=== PATIENT | male | born 1955 | race Asian ===

== ENCOUNTER 2024-05-21 16:42 | Inpatient (IN) | payer MEDICARE, MEDICAID ==
[~2024-05-21] VITALS: Ht 154.9 cm; Wt 86.0 kg
[2024-05-21] MEDS: FENTANYL-0.9 % NACL/PF 100 ML IV SCH (07:10)
[2024-05-21 16:57] VITALS: BP 144/94; PULSE 103; RESP 16; O2SAT 98
[2024-05-21 17:28] LABS: BASOPHILS % (AUTO) 0.1 % (0-1); EOSINOPHILS % (AUTO) 0.2 % (0-6); HEMATOCRIT 40.3 % (42.0-52.0); HEMOGLOBIN 13.7 g/dl (14.0-17.9); LYMPHOCYTES # (AUTO) 0.6 X10'3 (1.1-4.8); LYMPHOCYTES % (AUTO) 4.3 % (21-51); MEAN CORPUSCULAR HEMOGLOBIN 30.2 PG (27.0-31.0); MEAN CORPUSCULAR HGB CONC 33.9 g/dL (33.0-36.5); MEAN CORPUSCULAR VOLUME 88.9 FL (78-98); MEAN PLATELET VOLUME 7.9 FL (7.4-10.4); MONOCYTES # (AUTO) 0.2 X10'3 (0-0.9); MONOCYTES % (AUTO) 1.1 % (2-12); NEUTROPHILS # (AUTO) 14.1 X10'3 (1.8-7.7); NEUTROPHILS % (AUTO) 94.3 % (42-75); PLATELET COUNT 191 X10'3 (140-440); RED BLOOD COUNT 4.54 X10'6 (4.70-6.10); RED CELL DISTRIBUTION WIDTH 13.5 % (11.5-14.5); WHITE BLOOD COUNT 14.9 X10'3 (4.5-11.0)
[2024-05-21] MEDS: propofol 1000mg/100ml bottle 100 ML IV SCH (17:33)
[2024-05-21 17:41] LABS: APTT 29 SECONDS (22-32); PROTHROMBIN TIME 10.6 SECONDS (9.0-12.0)
[2024-05-21] MEDS ORDERED: morphine 4 MG/ML inj SYRINge IV PRN (17:45)
[2024-05-21] MEDS ORDERED: magnesium hydroxide 30ml (MOM) UD suspension PO PRN (17:45)
[2024-05-21] MEDS ORDERED: acetaminophen 325mg tablet PO PRN (17:45)
[2024-05-21] MEDS ORDERED: morphine 2 MG/ML inj. syringe IV PRN (17:45)
[2024-05-21 17:54] LABS: ALBUMIN 2.1 G/DL (3.4-5.0); ANION GAP 8 (8-16); BLOOD UREA NITROGEN 51 MG/DL (7-18); BUN/CREATININE RATIO 9.8 (10.0-20.0); CALCIUM 8.7 MG/DL (8.5-10.1); CHLORIDE 102 MMOL/L (99-107); MAGNESIUM 2.2 MG/DL (1.5-2.4); PRO BRAIN NATRIURETIC PEPTIDE 12947 PG/ML (0-125); SODIUM 133 MMOL/L (135-145); TOTAL CARBON DIOXIDE 23.3 MMOL/L (24-32); eCRCL 10 ML/MIN; eGFR 11 ML/MIN
[2024-05-21] MEDS: normal saline 1000ml 1,000 ML IV SCH (18:07)
[2024-05-21 18:08] LABS: GLUCOSE 558 MG/DL (70-104); POTASSIUM 6.4 MMOL/L (3.5-5.1)
[2024-05-21] MEDS: LidoCAINE 2% Topical Jelly 11mL syringe (UROJET) TOP ONE (18:11)
[2024-05-21] MEDS: dexmedetomidin/NS 400mcg/100ml 100 ML IV SCH (18:40)
[2024-05-21] MEDS: fentaNYL/PF 50MCG/1 ML 2ML syringe IV PRN (18:56)
[2024-05-21] MEDS: COMMUNICATION ORDER 1 EA MISC MC ONE (19:03)
[2024-05-21] MEDS: fentaNYL/PF 50MCG/1 ML 2ML syringe ONE (19:03)
[2024-05-21 19:14] VITALS: BP 92/58; PULSE 93; RESP 18; O2SAT 97
[2024-05-21 19:16] LABS: BILIRUBIN,URINE NEGATIVE (Neg); CLARITY,URINE SLIGHTLY CLOUDY (Clear); COLOR,URINE YELLOW (Yellow); GLUCOSE, URINE >=1000 mg/dl (Neg); KETONES,URINE NEGATIVE (Neg); LEUKOCYTE ESTERASE ,URINE NEGATIVE (Neg); OCCULT BLOOD,URINE MODERATE (Neg); PROTEIN,URINE >=300 mg/dl (Neg); UROBILINOGEN,URINE 0.2 E.U/dL (0.2-1.0)
[2024-05-21 19:19] LABS: NITRITES, URINE NEGATIVE (Neg)
[2024-05-21 19:23] LABS: BACTERIA,URINE 1+ /HPF (Neg); SQUAMOUS EPITHELIAL CELL,UR FEW /LPF (FEW); UA COLLECTION TYPE FOLEY CATH; WBC,URINE 0-4 /HPF (0-4)
[2024-05-21 19:35] LABS: ABG BASE EXCESS -4.3 mmol/L (-2.0-3.0); ABG HCO3 21.2 mmol/L (21.0-28.0); ABG OXYGEN SATURATION 95.1 % (94.0-98.0); ABG PCO2 (T) 38.9 mmHg (35.0-48.0); ABG PO2 (T) 74.5 mmHg (83.0-108.0); ALLEN'S TEST Modified; FCOHb 0.3 % (0.5-1.5); FHHb 4.8 % (0.0-5.0); FMetHb 1.1 % (0.0-1.5); FO2Hb 93.8 % (94.0-98.0); PATIENT TEMPERATURE 36.2; PEEP 8 cm H2O; RESPIRATORY RATE 18 b/min; TIDAL VOLUME 400 mL
[2024-05-21] MEDS ORDERED: albumin (human) 25% 100ml IV 100 ML in normal saline 500ml IV soln 400 ML IV ONE (19:35)
[2024-05-21] MEDS ORDERED: glucagon, human recombinant 1mg kit SUBCUT PRN (19:45)
[2024-05-21] MEDS ORDERED: DEXTROSE 15 GM of carb/4 tabs (each vial/BOTTLE has 4 tablets) PO PRN ×2 (19:45)
[2024-05-21] MEDS ORDERED: dextrose 50%-water 50ml dispensing syringe IV PRN ×2 (19:45)
[2024-05-21] MEDS: NORepinephrine 8mg/ 250ml NS 250 ML IV SCH (19:53)
[2024-05-21] MEDS: heparin, porcine 5000 units/ml vial SQ SCH (20:00)
[2024-05-21] MEDS: famotidine/PF 10 mg/ml inj IV SCH (21:10)
[2024-05-21] MEDS: SODIUM ZIRCONIUM CYCLOSILICATE 10 GM POWD.PACK PO SCH (21:11)
[2024-05-21] MEDS: albumin (Human) 5% 250ml 250 ML IV ONE (21:12)
[2024-05-21] MEDS: insulin regular, human U-100 10ml vial - multi-dose SQ SCH (21:14)
[2024-05-21 21:22] VITALS: BP 139/81; PULSE 83; RESP 20; O2SAT 100
[2024-05-21] MEDS: Insulin Reg/NS 100units/100mL 100 ML IV SCH (22:42)
[2024-05-21] MEDS: vancomycin/NS 1 GM ADD-VANTAGE 250 ML IV ONE (22:43)
[2024-05-21 23:17] VITALS: BP 126/79; PULSE 83; RESP 22; O2SAT 100
[2024-05-22] VITALS (21 sets, daily range): BP systolic 82–157; BP diastolic 51–87; PULSE 44–138; RESP 12–23; TEMP 97.8; O2SAT 94–100
[2024-05-22 02:43] LABS: BASOPHILS % (AUTO) 0 % (0-1); EOSINOPHILS % (AUTO) 0 % (0-6); HEMATOCRIT 33.4 % (42.0-52.0); HEMOGLOBIN 11.4 g/dl (14.0-17.9); LYMPHOCYTES # (AUTO) 0.4 X10'3 (1.1-4.8); LYMPHOCYTES % (AUTO) 5.9 % (21-51); MEAN CORPUSCULAR HEMOGLOBIN 30.1 PG (27.0-31.0); MEAN CORPUSCULAR HGB CONC 34.1 g/dL (33.0-36.5); MEAN CORPUSCULAR VOLUME 88.3 FL (78-98); MEAN PLATELET VOLUME 7.9 FL (7.4-10.4); MONOCYTES # (AUTO) 0.2 X10'3 (0-0.9); MONOCYTES % (AUTO) 3.2 % (2-12); NEUTROPHILS # (AUTO) 6.5 X10'3 (1.8-7.7); NEUTROPHILS % (AUTO) 90.9 % (42-75); PLATELET COUNT 139 X10'3 (140-440); RED BLOOD COUNT 3.78 X10'6 (4.70-6.10); RED CELL DISTRIBUTION WIDTH 13.5 % (11.5-14.5); WHITE BLOOD COUNT 7.2 X10'3 (4.5-11.0)
[2024-05-22 02:57] LABS: ALANINE AMINOTRANSFERASE 21 U/L (12-78); ALBUMIN/GLOBULIN RATIO 0.6 (1.1-1.5); ALKALINE PHOSPHATASE 153 IU/L (46-116); ANION GAP 6 (8-16); ASPARTATE AMINO TRANSFERASE 12 U/L (10-37); BILIRUBIN,TOTAL 0.3 MG/DL (0.1-1.0); BLOOD UREA NITROGEN 57 MG/DL (7-18); BUN/CREATININE RATIO 10.1 (10.0-20.0); CALCIUM 8.3 MG/DL (8.5-10.1); CHLORIDE 104 MMOL/L (99-107); CREATININE 5.66 MG/DL (0.60-1.10); MAGNESIUM 2.1 MG/DL (1.5-2.4); PHOSPHORUS 3.9 MG/DL (2.3-4.5); POTASSIUM 5.8 MMOL/L (3.5-5.1); SODIUM 135 MMOL/L (135-145); TOTAL CARBON DIOXIDE 24.8 MMOL/L (24-32); TOTAL PROTEIN 5.5 G/DL (6.4-8.2); eCRCL 9 ML/MIN; eGFR 10 ML/MIN
[2024-05-22 03:04] LABS: GLUCOSE 470 MG/DL (70-104)
[2024-05-22] MEDS: acetaminophen 1,000mg/100ml IV 100 ML IV ONE (03:21)
[2024-05-22 04:35] LABS: ABG BASE EXCESS -2.4 mmol/L (-2.0-3.0); ABG HCO3 22.4 mmol/L (21.0-28.0); ABG OXYGEN SATURATION 97.4 % (94.0-98.0); ABG PCO2 (T) 41.5 mmHg (35.0-48.0); ABG PH (T) 7.357 (7.350-7.450); ABG PO2 (T) 111.5 mmHg (83.0-108.0); ALLEN'S TEST Modified; FCOHb 0.2 % (0.5-1.5); FHHb 2.6 % (0.0-5.0); FMetHb 0.7 % (0.0-1.5); FO2Hb 96.5 % (94.0-98.0); MODE CMV PRVC IT0.9; PATIENT TEMPERATURE 38.8; PEEP 8 cm H2O; RESPIRATORY RATE 18 b/min; TIDAL VOLUME 400 mL; TOTAL HEMOGLOBIN 10.3 G/dl (13.5-17.5)
[2024-05-22] MEDS: INSULIN LISPRO 100 UNIT/ML INSULN.PEN MULTI-DOSE SQ SCH ×2 (07:24→21:00)
[2024-05-22] MEDS ORDERED: UNABLE TO OBTAIN (07:43)
[2024-05-22] MEDS ORDERED: enoxaparin 40mg/0.4ml syringe SUBCUT SCH (08:00)
[2024-05-22] MEDS ORDERED: vancomycin/NS 1 GM ADD-VANTAGE 250 ML IV PRN (08:00)
[2024-05-22] MEDS: DOBUTamine-DoBUTrex 500mg/D5W 250 ML IV SCH ×2 (08:14→15:05)
[2024-05-22] MEDS: DOBUTamine-DoBUTrex 500mg/D5W 250 ML IV ONE (08:36)
[2024-05-22] MEDS: ringers solution, lacted 1,000 ML IV ONE (08:39)
[2024-05-22] MEDS: cefepime 1GM in D5W 50mL 50 ML IV SCH (10:08)
[2024-05-22] MEDS: SODIUM ZIRCONIUM CYCLOSILICATE 10 GM POWD.PACK NG SCH (10:08)
[2024-05-22] MEDS ORDERED: dextrose 50%-water 50ml dispensing syringe IV PRN ×4 (12:25→13:35)
[2024-05-22] MEDS ORDERED: glucagon, human recombinant 1mg kit SUBCUT PRN ×2 (12:25→13:35)
[2024-05-22] MEDS ORDERED: DEXTROSE 15 GM of carb/4 tabs (each vial/BOTTLE has 4 tablets) PO PRN ×4 (12:25→13:35)
[2024-05-22] MEDS: ringers solution, lacted 1,000 ML IV SCH (12:40)
[2024-05-22] MEDS: famotidine/PF 10 mg/ml inj IV SCH (15:10)
[2024-05-22] MEDS: insulin glargine (Lantus) pen - multi-dose SQ SCH (20:00)
[2024-05-23] VITALS (20 sets, daily range): BP systolic 115–153; BP diastolic 71–97; PULSE 93–134; RESP 12–22; TEMP 97–98.9; O2SAT 94–99
[2024-05-23] MEDS: piperacillin/tazo 3.375gm/50ml 50 ML IV SCH ×2 (00:27→19:55)
[2024-05-23] MEDS ORDERED: VANCOMYCIN LEVEL IV SCH (03:00)
[2024-05-23 03:11] LABS: BASOPHILS % (AUTO) 0.2 % (0-1); EOSINOPHILS % (AUTO) 0.1 % (0-6); HEMATOCRIT 30.6 % (42.0-52.0); HEMOGLOBIN 10.4 g/dl (14.0-17.9); LYMPHOCYTES # (AUTO) 0.7 X10'3 (1.1-4.8); LYMPHOCYTES % (AUTO) 6.9 % (21-51); MEAN CORPUSCULAR HEMOGLOBIN 30.1 PG (27.0-31.0); MEAN CORPUSCULAR HGB CONC 34.1 g/dL (33.0-36.5); MEAN CORPUSCULAR VOLUME 88.2 FL (78-98); MEAN PLATELET VOLUME 8.1 FL (7.4-10.4); MONOCYTES # (AUTO) 0.7 X10'3 (0-0.9); MONOCYTES % (AUTO) 6.9 % (2-12); NEUTROPHILS # (AUTO) 8.5 X10'3 (1.8-7.7); NEUTROPHILS % (AUTO) 85.9 % (42-75); PLATELET COUNT 132 X10'3 (140-440); RED BLOOD COUNT 3.47 X10'6 (4.70-6.10); RED CELL DISTRIBUTION WIDTH 13.7 % (11.5-14.5); WHITE BLOOD COUNT 9.9 X10'3 (4.5-11.0)
[2024-05-23 03:43] LABS: ALBUMIN 1.9 G/DL (3.4-5.0); ANION GAP 9 (8-16); BLOOD UREA NITROGEN 70 MG/DL (7-18); CALCIUM 8.3 MG/DL (8.5-10.1); CHLORIDE 103 MMOL/L (99-107); CREATININE 5.85 MG/DL (0.60-1.10); MAGNESIUM 2.1 MG/DL (1.5-2.4); PHOSPHORUS 5.7 MG/DL (2.3-4.5); SODIUM 137 MMOL/L (135-145); TOTAL CARBON DIOXIDE 24.8 MMOL/L (24-32); eCRCL 9 ML/MIN; eGFR 10 ML/MIN
[2024-05-23 03:56] LABS: GLUCOSE 445 MG/DL (70-104)
[2024-05-23] MEDS: INSULIN LISPRO 100 UNIT/ML INSULN.PEN MULTI-DOSE SQ ONE (04:25)
[2024-05-23] MEDS: metoprolol tartrate 1mg/ml inj IV SCH (04:28)
[2024-05-23] MEDS: DOBUTamine-DoBUTrex 500mg/D5W 250 ML IV SCH (04:33)
[2024-05-23] MEDS ORDERED: cefepime inj. 0.25 GM in normal saline 100ml IV soln 102.5 ML IV SCH (08:00)
[2024-05-23] MEDS: acetaminophen 325mg tablet PO PRN (08:09)
[2024-05-23] MEDS: INSULIN LISPRO 100 UNIT/ML INSULN.PEN MULTI-DOSE SQ SCH ×2 (09:00→12:28)
[2024-05-23] MEDS: metoprolol succinate 25mg (24-HOUR) SR. Tablet PO SCH (11:07)
[2024-05-23 15:21] LABS: FREE T4 (FREE THYROXINE) 0.76 NG/DL (0.73-1.40); THYROID STIMULATING HORMONE 2.99 ulU/ml (0.34-4.50)
[2024-05-23] MEDS: ondansetron/PF 4mg/2ml inj IV PRN (19:34)
[2024-05-24] VITALS (10 sets, daily range): BP systolic 135–165; BP diastolic 69–98; PULSE 95–116; RESP 15–25; TEMP 97.1–98; O2SAT 94–99
[2024-05-24 04:16] LABS: BASOPHILS % (AUTO) 0.4 % (0-1); EOSINOPHILS # (AUTO) 0.3 X10'3 (0-0.9); EOSINOPHILS % (AUTO) 4.8 % (0-6); HEMATOCRIT 29.9 % (42.0-52.0); LYMPHOCYTES # (AUTO) 0.9 X10'3 (1.1-4.8); LYMPHOCYTES % (AUTO) 13.3 % (21-51); MEAN CORPUSCULAR HEMOGLOBIN 29.5 PG (27.0-31.0); MEAN CORPUSCULAR HGB CONC 33.4 g/dL (33.0-36.5); MEAN CORPUSCULAR VOLUME 88.3 FL (78-98); MEAN PLATELET VOLUME 7.9 FL (7.4-10.4); MONOCYTES # (AUTO) 0.6 X10'3 (0-0.9); MONOCYTES % (AUTO) 8.5 % (2-12); PLATELET COUNT 135 X10'3 (140-440); RED BLOOD COUNT 3.38 X10'6 (4.70-6.10); RED CELL DISTRIBUTION WIDTH 13.8 % (11.5-14.5); WHITE BLOOD COUNT 6.8 X10'3 (4.5-11.0)
[2024-05-24 04:58] LABS: ALBUMIN 1.7 G/DL (3.4-5.0); ANION GAP 9 (8-16); BLOOD UREA NITROGEN 64 MG/DL (7-18); CALCIUM 7.6 MG/DL (8.5-10.1); CHLORIDE 110 MMOL/L (99-107); CREATININE 5.83 MG/DL (0.60-1.10); GLUCOSE 93 MG/DL (70-104); MAGNESIUM 2.1 MG/DL (1.5-2.4); PHOSPHORUS 6.1 MG/DL (2.3-4.5); POTASSIUM 3.6 MMOL/L (3.5-5.1); SODIUM 145 MMOL/L (135-145); TOTAL CARBON DIOXIDE 26.4 MMOL/L (24-32); eCRCL 9 ML/MIN; eGFR 10 ML/MIN
[2024-05-24] MEDS: dextrose 50%-water 50ml dispensing syringe IV PRN (07:56)
[2024-05-24] MEDS: insulin glargine (Lantus) pen - multi-dose SQ SCH (20:00)
[2024-05-25] VITALS (8 sets, daily range): BP systolic 134–160; BP diastolic 82–92; PULSE 90–104; RESP 13–20; TEMP 97.3–99.2; O2SAT 94–100
[2024-05-25 04:26] LABS: BASOPHILS # (AUTO) 0.1 X10'3 (0-0.2); BASOPHILS % (AUTO) 0.7 % (0-1); EOSINOPHILS # (AUTO) 0.5 X10'3 (0-0.9); EOSINOPHILS % (AUTO) 6.9 % (0-6); HEMATOCRIT 30.7 % (42.0-52.0); HEMOGLOBIN 10.4 g/dl (14.0-17.9); LYMPHOCYTES # (AUTO) 0.9 X10'3 (1.1-4.8); LYMPHOCYTES % (AUTO) 13.4 % (21-51); MEAN CORPUSCULAR HEMOGLOBIN 29.7 PG (27.0-31.0); MEAN CORPUSCULAR VOLUME 87.3 FL (78-98); MEAN PLATELET VOLUME 7.5 FL (7.4-10.4); MONOCYTES # (AUTO) 0.7 X10'3 (0-0.9); MONOCYTES % (AUTO) 9.6 % (2-12); NEUTROPHILS # (AUTO) 4.7 X10'3 (1.8-7.7); NEUTROPHILS % (AUTO) 69.4 % (42-75); PLATELET COUNT 136 X10'3 (140-440); RED BLOOD COUNT 3.51 X10'6 (4.70-6.10); RED CELL DISTRIBUTION WIDTH 13.6 % (11.5-14.5); WHITE BLOOD COUNT 6.8 X10'3 (4.5-11.0)
[2024-05-25 04:39] LABS: ALBUMIN 1.7 G/DL (3.4-5.0); ANION GAP 6 (8-16); BLOOD UREA NITROGEN 61 MG/DL (7-18); BUN/CREATININE RATIO 10.5 (10.0-20.0); CALCIUM 7.3 MG/DL (8.5-10.1); CHLORIDE 108 MMOL/L (99-107); CREATININE 5.81 MG/DL (0.60-1.10); GLUCOSE 169 MG/DL (70-104); MAGNESIUM 2.1 MG/DL (1.5-2.4); PHOSPHORUS 5.9 MG/DL (2.3-4.5); POTASSIUM 3.6 MMOL/L (3.5-5.1); SODIUM 142 MMOL/L (135-145); TOTAL CARBON DIOXIDE 27.7 MMOL/L (24-32); eCRCL 9 ML/MIN; eGFR 10 ML/MIN
[2024-05-25] MEDS: SODIUM ZIRCONIUM CYCLOSILICATE 10 GM POWD.PACK PO SCH (09:58)
[2024-05-25] MEDS ORDERED: calcium acetate 667mg (PhosLO) capsule PO SCH (13:00)
[2024-05-25] MEDS: calcium acetate 667mg (PhosLO) capsule PO SCH (13:54)
[2024-05-26] VITALS (9 sets, daily range): BP systolic 135–160; BP diastolic 62–97; PULSE 57–112; RESP 14–19; TEMP 97–98.3; O2SAT 93–99
[2024-05-26 04:38] LABS: BASOPHILS % (AUTO) 0.6 % (0-1); EOSINOPHILS # (AUTO) 0.6 X10'3 (0-0.9); EOSINOPHILS % (AUTO) 9.1 % (0-6); HEMATOCRIT 32.6 % (42.0-52.0); LYMPHOCYTES # (AUTO) 1.1 X10'3 (1.1-4.8); LYMPHOCYTES % (AUTO) 17.4 % (21-51); MEAN CORPUSCULAR HEMOGLOBIN 29.7 PG (27.0-31.0); MEAN CORPUSCULAR HGB CONC 33.8 g/dL (33.0-36.5); MEAN CORPUSCULAR VOLUME 87.9 FL (78-98); MEAN PLATELET VOLUME 7.9 FL (7.4-10.4); MONOCYTES # (AUTO) 0.6 X10'3 (0-0.9); MONOCYTES % (AUTO) 9.8 % (2-12); NEUTROPHILS % (AUTO) 63.1 % (42-75); PLATELET COUNT 165 X10'3 (140-440); RED BLOOD COUNT 3.71 X10'6 (4.70-6.10); RED CELL DISTRIBUTION WIDTH 13.8 % (11.5-14.5); WHITE BLOOD COUNT 6.4 X10'3 (4.5-11.0)
[2024-05-26 04:51] LABS: ALBUMIN 1.8 G/DL (3.4-5.0); BLOOD UREA NITROGEN 61 MG/DL (7-18); BUN/CREATININE RATIO 11.1 (10.0-20.0); CALCIUM 7.4 MG/DL (8.5-10.1); CREATININE 5.48 MG/DL (0.60-1.10); GLUCOSE 199 MG/DL (70-104); MAGNESIUM 1.9 MG/DL (1.5-2.4); PHOSPHORUS 5.4 MG/DL (2.3-4.5); TOTAL CARBON DIOXIDE 25.8 MMOL/L (24-32); eCRCL 10 ML/MIN; eGFR 10 ML/MIN
[2024-05-26 05:07] LABS: ANION GAP 8 (8-16); CHLORIDE 108 MMOL/L (99-107); POTASSIUM 3.7 MMOL/L (3.5-5.1); SODIUM 142 MMOL/L (135-145)
[2024-05-26] MEDS: INSULIN LISPRO 100 UNIT/ML INSULN.PEN MULTI-DOSE SQ SCH (09:13)
[2024-05-26] MEDS: metoprolol succinate 25mg (24-HOUR) SR. Tablet PO ONE (17:58)
[2024-05-26] MEDS: furosemide 40mg/4ml inj IV SCH (18:09)
[2024-05-26] MEDS: hydrALAZINE 25 MG tablet PO SCH (20:19)
[2024-05-26] MEDS: insulin glargine (Lantus) pen - multi-dose SQ SCH (20:24)
[2024-05-27] VITALS (8 sets, daily range): BP systolic 125–151; BP diastolic 70–86; PULSE 86–105; RESP 13–23; TEMP 97.2–98.2; O2SAT 97–99
[2024-05-27 03:11] LABS: BASOPHILS % (AUTO) 0.7 % (0-1); EOSINOPHILS # (AUTO) 0.5 X10'3 (0-0.9); EOSINOPHILS % (AUTO) 9.1 % (0-6); HEMATOCRIT 28.3 % (42.0-52.0); HEMOGLOBIN 9.7 g/dl (14.0-17.9); LYMPHOCYTES # (AUTO) 0.8 X10'3 (1.1-4.8); LYMPHOCYTES % (AUTO) 14.2 % (21-51); MEAN CORPUSCULAR HEMOGLOBIN 29.7 PG (27.0-31.0); MEAN CORPUSCULAR HGB CONC 34.2 g/dL (33.0-36.5); MEAN CORPUSCULAR VOLUME 86.7 FL (78-98); MEAN PLATELET VOLUME 7.3 FL (7.4-10.4); MONOCYTES # (AUTO) 0.6 X10'3 (0-0.9); MONOCYTES % (AUTO) 10.6 % (2-12); NEUTROPHILS # (AUTO) 3.7 X10'3 (1.8-7.7); NEUTROPHILS % (AUTO) 65.4 % (42-75); PLATELET COUNT 153 X10'3 (140-440); RED BLOOD COUNT 3.26 X10'6 (4.70-6.10); RED CELL DISTRIBUTION WIDTH 13.5 % (11.5-14.5); WHITE BLOOD COUNT 5.6 X10'3 (4.5-11.0)
[2024-05-27 03:30] LABS: ALBUMIN 1.6 G/DL (3.4-5.0); ANION GAP 5 (8-16); BLOOD UREA NITROGEN 66 MG/DL (7-18); BUN/CREATININE RATIO 11.7 (10.0-20.0); CALCIUM 7.5 MG/DL (8.5-10.1); CHLORIDE 110 MMOL/L (99-107); CREATININE 5.63 MG/DL (0.60-1.10); GLUCOSE 86 MG/DL (70-104); PHOSPHORUS 5.2 MG/DL (2.3-4.5); POTASSIUM 3.7 MMOL/L (3.5-5.1); PRO BRAIN NATRIURETIC PEPTIDE 17887 PG/ML (0-125); SODIUM 144 MMOL/L (135-145); TOTAL CARBON DIOXIDE 28.9 MMOL/L (24-32); eCRCL 9 ML/MIN; eGFR 10 ML/MIN
[2024-05-27] MEDS: metoprolol succinate 25mg (24-HOUR) SR. Tablet PO SCH (08:37)
[2024-05-27] MEDS: SODIUM ZIRCONIUM CYCLOSILICATE 10 GM POWD.PACK PO SCH (08:39)
[2024-05-27] MEDS: INSULIN LISPRO 100 UNIT/ML INSULN.PEN MULTI-DOSE SQ SCH (09:56)
[2024-05-28] VITALS (7 sets, daily range): BP systolic 123–165; BP diastolic 76–94; PULSE 79–106; RESP 15–20; TEMP 97.3–98.1; O2SAT 91–99
[2024-05-28 03:31] LABS: BASOPHILS # (AUTO) 0.1 X10'3 (0-0.2); BASOPHILS % (AUTO) 0.9 % (0-1); EOSINOPHILS # (AUTO) 0.7 X10'3 (0-0.9); EOSINOPHILS % (AUTO) 11.4 % (0-6); HEMATOCRIT 28.5 % (42.0-52.0); HEMOGLOBIN 9.7 g/dl (14.0-17.9); LYMPHOCYTES # (AUTO) 1.2 X10'3 (1.1-4.8); LYMPHOCYTES % (AUTO) 20.8 % (21-51); MEAN CORPUSCULAR HEMOGLOBIN 29.5 PG (27.0-31.0); MEAN CORPUSCULAR HGB CONC 33.8 g/dL (33.0-36.5); MEAN CORPUSCULAR VOLUME 87.1 FL (78-98); MONOCYTES # (AUTO) 0.7 X10'3 (0-0.9); MONOCYTES % (AUTO) 11.5 % (2-12); NEUTROPHILS # (AUTO) 3.2 X10'3 (1.8-7.7); NEUTROPHILS % (AUTO) 55.4 % (42-75); PLATELET COUNT 171 X10'3 (140-440); RED BLOOD COUNT 3.28 X10'6 (4.70-6.10); RED CELL DISTRIBUTION WIDTH 13.6 % (11.5-14.5); WHITE BLOOD COUNT 5.8 X10'3 (4.5-11.0)
[2024-05-28 03:42] LABS: ALBUMIN 1.6 G/DL (3.4-5.0); ANION GAP 9 (8-16); BLOOD UREA NITROGEN 63 MG/DL (7-18); BUN/CREATININE RATIO 10.8 (10.0-20.0); CALCIUM 7.3 MG/DL (8.5-10.1); CHLORIDE 106 MMOL/L (99-107); CREATININE 5.86 MG/DL (0.60-1.10); GLUCOSE 109 MG/DL (70-104); MAGNESIUM 2.4 MG/DL (1.5-2.4); PHOSPHORUS 5.1 MG/DL (2.3-4.5); POTASSIUM 3.5 MMOL/L (3.5-5.1); SODIUM 143 MMOL/L (135-145); TOTAL CARBON DIOXIDE 28.5 MMOL/L (24-32); eCRCL 9 ML/MIN; eGFR 10 ML/MIN
[2024-05-29 02:00] VITALS: BP 132/76; PULSE 95; RESP 17; TEMP 97.8; O2SAT 97
[2024-05-29 06:00] VITALS: BP 149/64; PULSE 113; RESP 14; TEMP 98.1; O2SAT 99
[2024-05-29 06:06] LABS: BASOPHILS # (AUTO) 0.1 X10'3 (0-0.2); BASOPHILS % (AUTO) 1.1 % (0-1); EOSINOPHILS # (AUTO) 0.6 X10'3 (0-0.9); EOSINOPHILS % (AUTO) 11.4 % (0-6); HEMATOCRIT 28.6 % (42.0-52.0); HEMOGLOBIN 9.8 g/dl (14.0-17.9); LYMPHOCYTES # (AUTO) 1.2 X10'3 (1.1-4.8); MEAN CORPUSCULAR HEMOGLOBIN 30.2 PG (27.0-31.0); MEAN CORPUSCULAR HGB CONC 34.2 g/dL (33.0-36.5); MEAN CORPUSCULAR VOLUME 88.3 FL (78-98); MEAN PLATELET VOLUME 7.9 FL (7.4-10.4); MONOCYTES # (AUTO) 0.7 X10'3 (0-0.9); MONOCYTES % (AUTO) 12.9 % (2-12); NEUTROPHILS # (AUTO) 3.1 X10'3 (1.8-7.7); NEUTROPHILS % (AUTO) 53.6 % (42-75); PLATELET COUNT 172 X10'3 (140-440); RED BLOOD COUNT 3.24 X10'6 (4.70-6.10); RED CELL DISTRIBUTION WIDTH 13.6 % (11.5-14.5); WHITE BLOOD COUNT 5.7 X10'3 (4.5-11.0)
[2024-05-29 06:16] LABS: ALBUMIN 1.6 G/DL (3.4-5.0); ANION GAP 6 (8-16); BLOOD UREA NITROGEN 63 MG/DL (7-18); BUN/CREATININE RATIO 10.2 (10.0-20.0); CALCIUM 7.5 MG/DL (8.5-10.1); CHLORIDE 106 MMOL/L (99-107); CREATININE 6.15 MG/DL (0.60-1.10); GLUCOSE 94 MG/DL (70-104); MAGNESIUM 1.9 MG/DL (1.5-2.4); POTASSIUM 3.7 MMOL/L (3.5-5.1); SODIUM 142 MMOL/L (135-145); TOTAL CARBON DIOXIDE 29.8 MMOL/L (24-32); eCRCL 9 ML/MIN; eGFR 9 ML/MIN
[2024-05-29 08:25] VITALS: RESP 18; O2SAT 99
[2024-05-29 11:00] VITALS: BP 123/69; PULSE 87; RESP 14; TEMP 98.1; O2SAT 97
[2024-05-29] MEDS ORDERED: METO-395 PO (13:41)
[2024-05-29] MEDS ORDERED: FURO20TA4 PO (13:41)
[2024-05-29] MEDS ORDERED: HYDR25TA90 PO (13:41)
[2024-05-29] MEDS ORDERED: PHO667C PO (13:41)
[2024-05-29] MEDS ORDERED: LANTUS SQ (13:41)
[2024-05-29] MEDS ORDERED: ISOS10TA2 PO (13:41)
== END 2024-05-29 15:31 | disposition home or self-care (01) | DRG 871 ==
LOC: ER 16:42 → ED HOLD 17:47 → CICU 2S 05-22 05:38 → PCU 3S 05-22 18:08
PROVIDERS: ADMIT Internal Medicine Critical Care Medicine; ATTEND Internal Medicine Critical Care Medicine
PROC: 0BH17EZ Insertion of Endotracheal Airway into Trachea, Via Natural or Artificial Opening (ICD-10-PCS; principal; 2024-05-21)
PROC: 5A1935Z Respiratory Ventilation, Less than 24 Consecutive Hours (ICD-10-PCS; 2024-05-21)
PROC: 02HV33Z Insertion of Infusion Device into Superior Vena Cava, Percutaneous Approach (ICD-10-PCS; 2024-05-21)
PROC: B548ZZA Ultrasonography of Superior Vena Cava, Guidance (ICD-10-PCS; 2024-05-21)
DX: A41.9 Sepsis, unspecified organism (principal); I50.43 Acute on chronic combined systolic (congestive) and diastolic (congestive) heart failure; J69.0 Pneumonitis due to inhalation of food and vomit; J96.01 Acute respiratory failure with hypoxia; J18.9 Pneumonia, unspecified organism; N17.9 Acute kidney failure, unspecified; I16.1 Hypertensive emergency; N18.5 Chronic kidney disease, stage 5; I13.2 Hypertensive heart and chronic kidney disease with heart failure and with stage 5 chronic kidney disease, or end stage renal disease; E87.5 Hyperkalemia; E11.22 Type 2 diabetes mellitus with diabetic chronic kidney disease; K21.9 Gastro-esophageal reflux disease without esophagitis; E83.39 Other disorders of phosphorus metabolism; I25.2 Old myocardial infarction; Z79.899 Other long term (current) drug therapy; Z83.3 Family history of diabetes mellitus; Z86.73 Personal history of transient ischemic attack (TIA), and cerebral infarction without residual deficits; Z87.891 Personal history of nicotine dependence
CPT/HCPCS: 36415; 36600; 70450; 70486; 71045; 76770; 80048; 80053; 80202; 81001; 82570; 82800; 82803; 82948; 83036; 83605; 83735; 83880; 83970; 84100; 84145; 84156; 84300; 84439; 84443; 84484; 84560; 85018; 85025; 85610; 85730; 87070; 87081; 87207; 87502; 87503; 93005; 93306; 93880; 94003; 94760; 94799; 97116; 97161; 97530; 99291; A4314; A4615; A6258; A6402; A6449; C1751; C1758; G0378; J0131; J0692; J1250; J1644; J1815; J1940; J2405; J2543; J2704; J3010; J3370; J3490; J7030; J7040; J7120; P9045